=== PATIENT | male | born 1955 | race Hispanic/Latino ===

== ENCOUNTER → 2017-10-25 | Day surgery (SDC) | payer OTHER ==
[2017-10-24 12:02] LABS: BASOPHILS % 0.3 % (0.0-1.0); EOSINOPHILS # (AUTO) 0.2 (0.0-0.4); EOSINOPHILS % 3.2 % (0.0-6.0); HEMATOCRIT 41.3 % (38.2-49.6); HEMOGLOBIN 14.1 g/dL (14.0-18.0); LYMPHOCYTES # (AUTO) 1.9 (1.0-3.2); LYMPHOCYTES % 28.5 % (18.0-39.1); MEAN CORPUSCULAR HEMOGLOBIN 31.5 pg (28-32); MEAN CORPUSCULAR HGB CONC 34.1 g/dL (31-35); MEAN CORPUSCULAR VOLUME 92.4 fL (81-99); MONOCYTES # (AUTO) 0.7 (0.2-0.8); MONOCYTES % 10.6 % (4.4-11.3); NEUTROPHILS # (AUTO) 3.9 (2.1-6.9); PLATELET COUNT 205 x10e3/uL (140-360); RED BLOOD COUNT 4.47 x10e6/uL (4.3-5.7)
--- NOTE | 2017-10-24 12:19 | Diagnostic Imaging Report ---
PROCEDURE: Frontal and lateral views of the chest. COMPARISON: None. INDICATIONS: PRE OPERATIVE CHEST X-RAY FOR KNEE SURGERY FINDINGS: Lines/tubes: None. Lungs: The lungs are well inflated and clear. There is no evidence of pneumonia or pulmonary edema. Pleura: There is no pleural effusion or pneumothorax. Heart and mediastinum: The heart and the mediastinum are normal. Bones: No acute bony abnormality. IMPRESSION: 1. No acute cardiopulmonary abnormalities. Boris Bishop M.D. Dictated by: Boris Bishop M.D. on 10/24/2017 at 12:23 Electronically approved by: Boris Bishop M.D. on 10/24/2017 at 12:23
[2017-10-24 12:49] LABS: ANION GAP 11.1 mmol/L (8-16); BLOOD UREA NITROGEN 13 mg/dL (7-26); BUN/CREATININE RATIO 16 (6-25); CALCIUM 9.7 mg/dL (8.4-10.2); CARBON DIOXIDE 29 mmol/L (22-29); CHLORIDE 104 mmol/L (98-107); CREATININE, SERUM 0.81 mg/dL (0.72-1.25); EST GLOMERULAR FILTRATION RATE > 60 ML/MIN (60-); GLUCOSE 132 mg/dL (74-118); POTASSIUM 4.1 mmol/L (3.5-5.1); SODIUM 140 mmol/L (136-145)
[~2017-10-25] MED LIST: ASPIR 8181 MG PO; BUPIVACAINE 0.5%/EPI 30 ML SDV INJ ONE; CARVEDILOL12.5 MG PO; CEFAZOLIN SOD 2 GM/D5W 50ML 50 ML IV ONE; DEXAMETHASONE SOD PHOS INJ 4 MG/ML VIAL ONE; ENTRESTO PO; EPHEDRINE SULFATE INJ 50 MG/10 ML SYR ONE; FENTANYL CITRATE/PF 100MCG/2 ML INJ ONE; JANUVIA100 MG PO; LIDOCAINE HCL 2% LOCAL INJ 5 ML SDV VIAL INJ ONE; METFORMIN HCL500 MG PO; MIDAZOLAM HCL 2 MG/2 ML VIAL ONE; ONDANSETRON HCL INJ 2 MG/ML VIAL ONE; PLAVIX75 MG PO; PROPOFOL IV EMULSION 10 MG/ML 20 ML VIAL ONE; SEVOFLURANE INHAL SOLN 250 ML PEN BTL ONE; SPIRONOLACTONE25 MG PO; VYTORIN 10-401 EACH PO
--- NOTE | 2017-10-28 15:05 | Operative Report ---
DATE OF PROCEDURE: October 25, 2017 PREOPERATIVE DIAGNOSES 1. Right knee medial meniscus tear. 2. Right knee degenerative joint disease in the knee. POSTOPERATIVE DIAGNOSES 1. Right knee medial meniscus tear. 2. Right knee degenerative joint disease in the knee. OPERATIONS/PROCEDURES PERFORMED 1. Patient underwent a right knee examination under anesthesia. 2. Right knee arthroscopy. 3. Right knee partial medial meniscectomy. 4. Right knee chondroplasty of the patella, the trochlea, the medial femoral condyle and medial tibial plateau, the lateral femoral condyle and lateral tibial plateau. 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 ANESTHESIA: General endotracheal intubation anesthesia. IV FLUIDS: As per the anesthesia record. BRIEF DESCRIPTION OF OPERATIVE PROCEDURE: Mr. West was taken to the operating room and placed in supine position on the operating table. Following induction of general anesthesia as well as endotracheal intubation, the patient's right lower extremity was found under anesthesia. He was found to have a mild effusion within the knee joint, but an otherwise ligamentously stable knee. The patient's lower extremity was prepped and draped in standard surgical fashion. A 2-port technique used to provide this patient arthroscopic evaluation of the knee joint. Examination of the suprapatellar pouch and medial and lateral gutters found no evidence of loose bodies. There was; however, evidence of chondromalacia of the patella and trochlear surfaces. Scope was advanced to the medial compartment and examination of the medial compartment demonstrated a torn macerated medial meniscus. There was also chondromalacia of the articulating surfaces. A combination of biting forceps and a motorized shaver was used to resect the torn portion of the meniscus. Chondroplasties of the medial femoral condyle and medial tibial plateau were performed at this time. The scope was then advanced into the intercondylar notch and anterior cruciate ligament was identified and found to be intact. Scope was advanced in lateral compartment and there was chondromalacia of articulating surfaces. Chondroplasties of the lateral femoral condyle and lateral tibial plateau were performed at this time. Scope was then transferred to the suprapatellar pouch and chondroplasties of patella and trochlea were performed. Knee was deflated of its sterile normal saline. Each of the portal sites were closed using 4-0nylon suture. Portal sites as well as the knee itself were then injected with 0.5% Marcaine with epinephrine. Sterile dressings were applied. Patient was then awakened and taken to postanesthesia care unit in stable condition. Job#: [id number] MAKSIM
== END | disposition home or self-care (01) ==
LOC: OR 13:22
PROVIDERS: ATTEND Specialist
DX: S83.221A Peripheral tear of medial meniscus, current injury, right knee, initial encounter (principal); M17.11 Unilateral primary osteoarthritis, right knee; M22.41 Chondromalacia patellae, right knee; E11.9 Type 2 diabetes mellitus without complications; I10 Essential (primary) hypertension; I25.2 Old myocardial infarction; E78.5 Hyperlipidemia, unspecified; E78.00 Pure hypercholesterolemia, unspecified; X58.XXXA Exposure to other specified factors, initial encounter; Z01.810 Encounter for preprocedural cardiovascular examination; Z01.812 Encounter for preprocedural laboratory examination; Z01.818 Encounter for other preprocedural examination; Z79.82 Long term (current) use of aspirin; Z79.02 Long term (current) use of antithrombotics/antiplatelets; Z79.84 Long term (current) use of oral hypoglycemic drugs; Z68.35 Body mass index [BMI] 35.0-35.9, adult; Z95.5 Presence of coronary angioplasty implant and graft
CPT/HCPCS: 29881; 36415 ×2; 71046; 80048; 82948; 85025; 93005; J1100; J2001; J2250; J2405

== ENCOUNTER 2017-12-11 16:44 | Observation (INO) | payer OTHER ==
[~2017-12-11] VITALS: Ht 177.8 cm; Wt 113.9 kg
[~2017-12-11 16:44] MED LIST changes: -BUPIVACAINE 0.5%/EPI 30 ML SDV INJ ONE; -CEFAZOLIN SOD 2 GM/D5W 50ML 50 ML IV ONE; -DEXAMETHASONE SOD PHOS INJ 4 MG/ML VIAL ONE; -EPHEDRINE SULFATE INJ 50 MG/10 ML SYR ONE; -FENTANYL CITRATE/PF 100MCG/2 ML INJ ONE; -LIDOCAINE HCL 2% LOCAL INJ 5 ML SDV VIAL INJ ONE; -MIDAZOLAM HCL 2 MG/2 ML VIAL ONE; -ONDANSETRON HCL INJ 2 MG/ML VIAL ONE; -PROPOFOL IV EMULSION 10 MG/ML 20 ML VIAL ONE; -SEVOFLURANE INHAL SOLN 250 ML PEN BTL ONE
[2017-12-11 18:30] LABS: BASOPHILS # (AUTO) 0.1 (0.0-0.1); BASOPHILS % 0.4 % (0.0-1.0); EOSINOPHILS # (AUTO) 0.2 (0.0-0.4); EOSINOPHILS % 1.7 % (0.0-6.0); HEMATOCRIT 41.9 % (38.2-49.6); HEMOGLOBIN 14.6 g/dL (14.0-18.0); LYMPHOCYTES # (AUTO) 2.5 (1.0-3.2); LYMPHOCYTES % 22.2 % (18.0-39.1); MEAN CORPUSCULAR HEMOGLOBIN 31.5 pg (28-32); MEAN CORPUSCULAR HGB CONC 34.8 g/dL (31-35); MEAN CORPUSCULAR VOLUME 90.3 fL (81-99); MONOCYTES # (AUTO) 1.1 (0.2-0.8); NEUTROPHILS # (AUTO) 7.4 (2.1-6.9); NEUTROPHILS % 65.3 % (38.7-80.0); PLATELET COUNT 231 x10e3/uL (140-360); RED BLOOD COUNT 4.64 x10e6/uL (4.3-5.7); RED CELL DISTRIBUTION WIDTH 13.7 % (11.7-14.4)
[2017-12-11 18:39] LABS: BILIRUBIN,URINE NEGATIVE (NEGATIVE); CLARITY,URINE CLEAR (CLEAR); COLOR,URINE YELLOW (YELLOW); KETONES,URINE NEGATIVE (NEGATIVE); LEUKOCYTE ESTERASE ,URINE NEGATIVE (NEGATIVE); NITRITE,URINE NEGATIVE (NEGATIVE); PROTEIN,URINE DIPSTICK NEGATIVE (NEGATIVE); URINE UROBILINOGEN 0.2 mg/dL (0.2 - 1)
[2017-12-11 18:47] LABS: MUCUS,URINE FEW (RARE); RBC,URINE 0-5 /HPF (0-5); WBC,URINE (MAN) 0-5 /HPF (0-5)
--- NOTE | 2017-12-11 18:51 | Diagnostic Imaging Report ---
PROCEDURE: A single AP view of the chest. COMPARISON: 10/24/17 INDICATIONS: LEFT SIDED CHEST AND SHOULDER PAIN FINDINGS: Lines/tubes: None. Lungs: Patient's chin obscures lung apices. The lungs are well inflated and clear. There is no evidence of pneumonia or pulmonary edema. Pleura: There is no pleural effusion or pneumothorax. Heart and mediastinum: The heart and the mediastinum are unremarkable. Bones: No acute bony abnormality. IMPRESSION: 1. No acute cardiopulmonary disease. Dictated by: Morales Velasquez M.D. on 12/11/2017 at 18:56 Electronically approved by: Morales Velasquez M.D. on 12/11/2017 at 18:56
[2017-12-11 20:24] LABS: INR 1.11; PARTIAL THROMBOPLASTIN TIME 31.6 seconds (23.8-35.5); PROTHROMBIN TIME 13.5 seconds (11.9-14.5)
[2017-12-11 20:33] LABS: ALANINE AMINOTRANSFERASE 18 IU/L (0-55); ALBUMIN 3.9 g/dL (3.5-5.0); ALBUMIN/GLOBULIN RATIO 1.1 (0.8-2.0); ALKALINE PHOSPHATASE 66 IU/L (40-150); ANION GAP 15.1 mmol/L (8-16); BLOOD UREA NITROGEN 14 mg/dL (7-26); BUN/CREATININE RATIO 15 (6-25); CALCIUM 9.6 mg/dL (8.4-10.2); CARBON DIOXIDE 25 mmol/L (22-29); CHLORIDE 103 mmol/L (98-107); CREATINE KINASE 59 IU/L (30-200); CREATININE, SERUM 0.96 mg/dL (0.72-1.25); EST GLOMERULAR FILTRATION RATE > 60 ML/MIN (60-); GLUCOSE 90 mg/dL (74-118); POTASSIUM 4.1 mmol/L (3.5-5.1); SODIUM 139 mmol/L (136-145)
[2017-12-11] MEDS ORDERED: SODIUM CHLORIDE FLUSH 10 ML SYR INJ PRN (21:45)
[2017-12-11] MEDS ORDERED: ONDANSETRON HCL INJ 2 MG/ML VIAL IV PRN (21:45)
[2017-12-11] MEDS ORDERED: DEXTROSE 50% SYRINGE 50 ML IV PRN (21:45)
[2017-12-11] MEDS ORDERED: MORPHINE SULFATE INJ 4 MG/ML INJ ONE (23:35)
[2017-12-11] MEDS: FAMOTIDINE 20 MG/2 ML VIAL IV SCH (23:44)
[2017-12-11] MEDS: MORPHINE SULFATE 2 MG/ML SYR IV PRN (23:44)
[2017-12-12] VITALS (12 sets, daily range): BP systolic 109–141; BP diastolic 63–77
[2017-12-12] MEDS: MORPHINE SULFATE 2 MG/ML SYR IV PRN ×3 (04:20→14:30)
[2017-12-12 05:57] LABS: BASOPHILS % 0.3 % (0.0-1.0); EOSINOPHILS # (AUTO) 0.3 (0.0-0.4); EOSINOPHILS % 2.9 % (0.0-6.0); HEMATOCRIT 39.4 % (38.2-49.6); HEMOGLOBIN 13.4 g/dL (14.0-18.0); LYMPHOCYTES # (AUTO) 2.9 (1.0-3.2); LYMPHOCYTES % 30.4 % (18.0-39.1); MEAN CORPUSCULAR HEMOGLOBIN 31.2 pg (28-32); MEAN CORPUSCULAR VOLUME 91.8 fL (81-99); MONOCYTES # (AUTO) 1.2 (0.2-0.8); MONOCYTES % 12.8 % (4.4-11.3); NEUTROPHILS % 53.3 % (38.7-80.0); PLATELET COUNT 175 x10e3/uL (140-360); RED BLOOD COUNT 4.29 x10e6/uL (4.3-5.7); RED CELL DISTRIBUTION WIDTH 13.3 % (11.7-14.4)
[2017-12-12 06:19] LABS: CHOL/HDL RATIO 2.1 (3.9-4.7)
[2017-12-12 06:28] LABS: CREATINE KINASE MB 0.7 ng/mL (0-5.0)
[2017-12-12 06:50] LABS: ANION GAP 12.5 mmol/L (8-16); BLOOD UREA NITROGEN 14 mg/dL (7-26); BUN/CREATININE RATIO 18 (6-25); CARBON DIOXIDE 26 mmol/L (22-29); CHLORIDE 103 mmol/L (98-107); CREATININE, SERUM 0.79 mg/dL (0.72-1.25); EST GLOMERULAR FILTRATION RATE > 60 ML/MIN (60-); GLUCOSE 101 mg/dL (74-118); MAGNESIUM 1.3 MG/DL (1.3-2.1); PHOSPHORUS 3.9 MG/DL (2.3-4.7); POTASSIUM 3.5 mmol/L (3.5-5.1); SODIUM 138 mmol/L (136-145)
[2017-12-12 07:11] LABS: THYROID STIMULATING HORMONE 2.305 uIU/mL (0.350-4.940)
[2017-12-12] MEDS ORDERED: INSULIN REGULAR, HUMAN 100 UNIT/1 ML 3ML VIAL SQ SCH (07:30)
[2017-12-12] MEDS ORDERED: DEXTROSE 50% SYRINGE 50 ML IV PRN (08:00)
[2017-12-12] MEDS: ASPIRIN 81 MG ENTERIC COATED PO SCH (08:57)
[2017-12-12] MEDS: CARVEDILOL 12.5 MG TAB PO SCH (08:57)
[2017-12-12] MEDS: SPIRONOLACTONE 25 MG TAB PO SCH (08:57)
[2017-12-12] MEDS: FAMOTIDINE 20 MG/2 ML VIAL IV SCH ×2 (08:57→21:00)
[2017-12-12] MEDS: SITAGLIPTIN 100 MG TAB PO SCH (08:58)
[2017-12-12] MEDS: CLOPIDOGREL BISULFATE 75 MG TAB PO SCH (08:58)
[2017-12-12] MEDS: ENOXAPARIN SOD INJ 40 MG/0.4 ML SYR SC SCH (08:58)
[2017-12-12] MEDS: ENTRESTO PO SCH (08:58)
[2017-12-12] MEDS ORDERED: NON-FORMULARY MEDICATION (Ezetimibe/Simvastatin (Vytorin 10-40 Mg Tablet) 1 TAB) PO SCH (09:00)
[2017-12-12] MEDS: INSULIN LISPRO 100 UNIT/1 ML 3ML VIAL SQ SCH ×3 (11:14→21:00)
[2017-12-12] MEDS ORDERED: REGADENOSON 0.4 MG/5 ML SYR IV ONE (13:13)
--- NOTE | 2017-12-12 13:14 | Consultation ---
DATE OF CONSULTATION: December 12, 2017 CARDIOLOGY CONSULTATION ATTENDING PHYSICIAN: Dr. Caleb Giraldo. Thank you so much for asking me to see this nice man in consultation. Mr. 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 CHIEF COMPLAINT: He presents to the emergency room with a complaint of left shoulder and left arm discomfort. HISTORY OF PRESENT ILLNESS: The patient and his tell me that he usually sleeps with some sort of special pillow for his neck but over the weekend did not use this and awoke with pain in the left scapula and the left arm. He tried nitroglycerin which did not seem to help. PAST MEDICAL HISTORY: Significant for what he reports as 3 previous myocardial infarctions treated with 6 coronary stents at different times by Dr. Kidd at [facility]. Patient tells me that he has "EF 25%". He reports his last cardiac evaluation was a stress echocardiogram in May 2017. Past medical history also significant for scope of his right knee in October of 2017 and a scope of his left knee in 2007 and a surgery on his lumbar spine in 1999. He has longstanding diabetes and hypertension. CURRENT MEDICATIONS: Here in the hospital include Aspirin 81 mg daily, Carvedilol 25 mg, Clopidogrel 75 mg daily, Lovenox, Zetia 10 mg daily, Humalog, simvastatin 40 mg daily, Januvia 100 mg daily, spironolactone 25 mg and he uses Entresto. PERSONAL AND SOCIAL HISTORY: Does not smoke. REVIEW OF SYSTEMS ENDOCRINE: He reports he has not checked a fingerstick blood sugar in several weeks or months. GENERAL: He reports that his weight goes up and down, depends on whether he is in the [place] or in [place]. PHYSICAL EXAMINATION GENERAL: At this time shows a pleasant obese man. VITAL SIGNS: He is 5 feet 10 inches tall, weighing 253 pounds. Blood pressure 140/70. HEENT: Unremarkable. NECK: Thick. THORAX: Heart sounds S1, S2 are equal. No murmurs. LUNGS: Are clear. ABDOMEN: Markedly protuberant. Nontender. No masses. EXTREMITIES: No cyanosis, clubbing or edema. The left shoulder is tender to palpation and movement but not rotation. PERTINENT LABORATORY STUDIES: Show potassium 3.5, BUN 14, creatinine 0.79, glucose 101. White count 9.4. His BNP is normal. Troponins are normal times 2. ASSESSMENT 1. Shoulder pain, etiology not clear. 2. Known coronary artery disease. 3. Reduced ejection fracture by history. 4. Type 2 adult onset diabetes. PLAN: Will check [place] with [facility] today to further assess status of his coronary disease and left ventricular function. Agree with analgesics for his shoulder pain. Will follow him closely with you. Thank you for asking me to see him in consultation. Job#: [id number] ADA
[2017-12-12 18:34] LABS: CREATINE KINASE MB 0.8 ng/mL (0-5.0)
[2017-12-12] MEDS ORDERED: MORPHINE SULFATE 2 MG/ML SYR IV PRN (19:30)
[2017-12-12] MEDS ORDERED: EZETIMIBE 10 MG TAB PO SCH (21:00)
[2017-12-12] MEDS ORDERED: SIMVASTATIN 40 MG TAB PO SCH (21:00)
[2017-12-12] MEDS: BACLOFEN 10 MG TAB PO SCH (21:15)
[2017-12-13 00:42] VITALS: BP 153/83
[2017-12-13 04:53] VITALS: BP 131/71
[2017-12-13 05:25] LABS: BASOPHILS % 0.4 % (0.0-1.0); EOSINOPHILS # (AUTO) 0.3 (0.0-0.4); EOSINOPHILS % 3.4 % (0.0-6.0); HEMATOCRIT 39.4 % (38.2-49.6); HEMOGLOBIN 13.5 g/dL (14.0-18.0); LYMPHOCYTES # (AUTO) 2.3 (1.0-3.2); LYMPHOCYTES % 29.9 % (18.0-39.1); MEAN CORPUSCULAR HEMOGLOBIN 31.3 pg (28-32); MEAN CORPUSCULAR HGB CONC 34.3 g/dL (31-35); MEAN CORPUSCULAR VOLUME 91.2 fL (81-99); MONOCYTES # (AUTO) 0.8 (0.2-0.8); MONOCYTES % 10.6 % (4.4-11.3); NEUTROPHILS # (AUTO) 4.3 (2.1-6.9); NEUTROPHILS % 55.4 % (38.7-80.0); PLATELET COUNT 178 x10e3/uL (140-360); RED BLOOD COUNT 4.32 x10e6/uL (4.3-5.7)
[2017-12-13 05:54] LABS: ANION GAP 12.8 mmol/L (8-16); BLOOD UREA NITROGEN 14 mg/dL (7-26); BUN/CREATININE RATIO 17 (6-25); CALCIUM 9.4 mg/dL (8.4-10.2); CARBON DIOXIDE 27 mmol/L (22-29); CHLORIDE 102 mmol/L (98-107); CREATININE, SERUM 0.83 mg/dL (0.72-1.25); EST GLOMERULAR FILTRATION RATE > 60 ML/MIN (60-); GLUCOSE 101 mg/dL (74-118); MAGNESIUM 1.4 MG/DL (1.3-2.1); POTASSIUM 3.8 mmol/L (3.5-5.1); SODIUM 138 mmol/L (136-145)
[2017-12-13 07:20] VITALS: BP 121/70
[2017-12-13] MEDS: INSULIN LISPRO 100 UNIT/1 ML 3ML VIAL SQ SCH ×2 (07:30→11:30)
[2017-12-13] MEDS ORDERED: BACLOFEN10 MG PO (07:57)
[2017-12-13] MEDS ORDERED: NAPROXEN375 M1 PO (07:57)
[2017-12-13 08:25] VITALS: BP 121/70
[2017-12-13] MEDS: FAMOTIDINE 20 MG/2 ML VIAL IV SCH (08:42)
[2017-12-13] MEDS: SPIRONOLACTONE 25 MG TAB PO SCH (08:42)
[2017-12-13] MEDS: CARVEDILOL 12.5 MG TAB PO SCH (08:43)
[2017-12-13] MEDS: BACLOFEN 10 MG TAB PO SCH (08:43)
[2017-12-13] MEDS: CLOPIDOGREL BISULFATE 75 MG TAB PO SCH (08:43)
[2017-12-13] MEDS: SITAGLIPTIN 100 MG TAB PO SCH (08:43)
[2017-12-13] MEDS: ENOXAPARIN SOD INJ 40 MG/0.4 ML SYR SC SCH (08:43)
[2017-12-13] MEDS: ASPIRIN 81 MG ENTERIC COATED PO SCH (08:43)
[2017-12-13] MEDS: ENTRESTO PO SCH (08:53)
[2017-12-13 12:28] VITALS: BP 131/69
--- NOTE | 2017-12-13 17:12 | Discharge Summary ---
ADMITTING DIAGNOSES 1. Chest pain. 2. Left shoulder pain. 3. Hypertension. 4. Hyperlipidemia. 5. Type-2 diabetes. 6. Obesity. DISCHARGE DIAGNOSES 1. Chest pain. 2. Left shoulder pain. 3. Hypertension. 4. Hyperlipidemia. 5. Type-2 diabetes. 6. Obesity. 7. Rule out myocardial infarction. HISTORY: The patient has history of hypertension, type-2 diabetes, 3 MIs with 6 stents in 2004, 2007 and 2011, hyperlipidemia, and CHF. Surgical history of back surgery and bilateral knee surgery. HOSPITAL COURSE: This 62-year-old male complains of chest pain and left shoulder pain described as sharp and constant that began Monday while sleeping. He had associated diaphoresis. The pain is worsened with movement. The patient denies nausea, vomiting, fever and dizziness. The pain radiates to the left arm and around to the scapula. Troponins were negative x3. EKG showed normal sinus rhythm. Tele showed sinus rhythm. Cardiology was consulted. BNP was 17. Chest x-ray was negative. Per cardiology, the patient will have a stress test due to the extensive cardio history. Per cardiology, the pain is not related to the heart, and he recommends NSAID for muscular pain. The patient will discharge home with naproxen and baclofen p.r.n. He will resume his home medications and follow up with his christmas tree grower as needed as well as his primary care in 1 to 2 weeks. The patient and his understand the discharge instructions and agree to the plan. Vital signs are stable, and the patient is afebrile. Dictated by Briseyda Yusuf NP. RADHA SHAW MD Job#: [id number]
== END 2017-12-13 13:04 | disposition home or self-care (01) ==
LOC: ER 16:44 → ERHOLD 22:23 → IMCU 12-12 01:22
PROVIDERS: ADMIT Internal Medicine; ATTEND Internal Medicine
DX: R07.89 Other chest pain (principal); M25.512 Pain in left shoulder; E11.9 Type 2 diabetes mellitus without complications; I25.2 Old myocardial infarction; I11.0 Hypertensive heart disease with heart failure; I50.9 Heart failure, unspecified; E66.9 Obesity, unspecified; E78.5 Hyperlipidemia, unspecified; I25.10 Atherosclerotic heart disease of native coronary artery without angina pectoris; Z09 Encounter for follow-up examination after completed treatment for conditions other than malignant neoplasm; Z68.36 Body mass index [BMI] 36.0-36.9, adult
CPT/HCPCS: 36415 ×3; 71045; 78452; 80048 ×2; 80053; 80061; 81001; 82550 ×2; 82553 ×2; 82948 ×2; 83036; 83735 ×2; 83880 ×2; 84100; 84443; 84484 ×2; 85025 ×3; 85610; 85730; 93005; 99284; A9502; G0378 ×3; J1650 ×2; J2270 ×3; J2405